=== PATIENT | male | born 1960 | race Caucasian/White ===

== ENCOUNTER 2019-06-13 18:21 | Inpatient (IN) | payer OTHER ==
[~2019-06-13] VITALS: Ht 175.3 cm; Wt 99.8 kg
[~2019-06-13 18:21] MED LIST: RISP2TAB5
--- NOTE | 2019-06-13 18:44 | NUR ---
patient BIBsister, c/o sob/cough/and abdominal distension. On room air, breathing evenly and unlabored. connected to the monitor and pulse ox. IV access initiated, blood drawned. Will continue to monitor accordingly.
[2019-06-13 18:47] LABS: BASOPHILS # (AUTO) 0.1 /CMM (0.0-0.2); EOSINOPHILS % (AUTO) 0.1 % (0.0-6.0); HEMATOCRIT 44 % (39-51); HEMOGLOBIN 14.6 g/dL (13.5-17.5); LYMPHOCYTES # (AUTO) 1.8 /CMM (0.8-4.8); LYMPHOCYTES % (AUTO) 20.2 % (20.0-44.0); MEAN CORPUSCULAR HGB CONC 33 g/dl (31.0-36.0); MEAN CORPUSCULAR VOLUME 92 fL (80-96); MONOCYTES # (AUTO) 0.8 /CMM (0.1-1.30); MONOCYTES % (AUTO) 8.4 % (2.0-12.0); NEUTROPHILS # (AUTO) 6.3 /CMM (1.8-8.9); NEUTROPHILS % (AUTO) 70.3 % (43.0-81.0); PLATELET COUNT (AUTO) 217 /CMM (150-450); RED BLOOD CELL COUNT(AUTO) 4.78 MIL/uL (4.5-6.0)
--- NOTE | 2019-06-13 18:48 | NUR ---
called RT for teatment and aware
--- NOTE | 2019-06-13 18:55 | NUR ---
RT on site.
[2019-06-13 18:57] LABS: CALCIUM, SERUM 8.7 mg/dL (8.5-10.1); CREATININE 1.4 mg/dL (0.6-1.3)
[2019-06-13] MEDS ORDERED: IPRATROPIUM NEB FS 0.5 MG/2.5 ML AMPUL.NEB ONE (18:57)
[2019-06-13] MEDS ORDERED: ALBUTEROL FS 2.5 MG/3 ML VIAL.NEB ONE (18:57)
[2019-06-13] MEDS ORDERED: IPRATROPIUM NEB FS 0.5 MG/2.5 ML AMPUL.NEB NEB ONE (19:00)
[2019-06-13] MEDS ORDERED: ALBUTEROL FS 2.5 MG/3 ML VIAL.NEB NEB ONE (19:00)
[2019-06-13 19:19] LABS: ALBUMIN 3.2 g/dL (3.4-5.0); BILIRUBIN,DIRECT 0.4 mg/dL (0.0-0.2); BILIRUBIN,TOTAL 0.8 mg/dL (0.2-1.0); TOTAL PROTEIN, SERUM 6.2 g/dL (6.4-8.2)
[2019-06-13] MEDS ORDERED: ENALAPRILAT INJ (1.25 MG/ML) 1.25 MG/ML VIAL IV PRN (19:30)
[2019-06-13] MEDS ORDERED: hydrALAZINE HCL IV 20 MG VIAL IV ONE (19:30)
[2019-06-13] MEDS ORDERED: ASPIRIN 325 MG TABLET PO ONE (19:30)
[2019-06-13] MEDS ORDERED: FUROSEMIDE 40 MG/4 ML VIAL IV ONE (19:30)
[2019-06-13] MEDS ORDERED: ENALAPRILAT INJ (1.25 MG/ML) 1.25 MG/ML VIAL IV ONE (19:31)
[2019-06-13] MEDS ORDERED: hydrALAZINE HCL IV 20 MG VIAL ONE (19:31)
[2019-06-13] MEDS ORDERED: FUROSEMIDE 40 MG/4 ML VIAL ONE (19:31)
[2019-06-13] MEDS ORDERED: ASPIRIN 325 MG TABLET ONE (19:32)
--- NOTE | 2019-06-13 19:34 | NUR ---
CALLED [facility]
--- NOTE | 2019-06-13 19:39 | NUR ---
CALLED FOR TELE BED
--- NOTE | 2019-06-13 19:42 | NUR ---
endorsed to next shift RN to continue care.
--- NOTE | 2019-06-13 19:51 | NUR ---
Tele [phone]
[2019-06-13 20:35] VITALS: BP 157/114
--- NOTE | 2019-06-13 20:59 | NUR ---
report given to danelle galan for myron pt transported to 3rd floor
--- NOTE | 2019-06-13 21:00 | NUR ---
COMMERCIAL HORTICULTURE INSTRUCTORMINERAL INDUSTRY TEACHER NOTES PATIENT CAME TO UNIT FROM ER VIA [place], SISTER PRESENT. PATIENT IS ALERT, ORIENTED X 3. BREATHING EVEN AND UNLABORED. NOT IN ANY DISTRESS. NO COMPLAINTS AT THIS TIME. PATIENT IS AMBULATORY, NO SKIN ISSUES NOTED. ABDOMINAL SCAR NOTED FROM AN APPENDECTOMY ABOUT 15 YRS AGO. TELE MONITOR IN PLACE- SINUS RHYTHM 93. IV LINE ON RAC G#18 INTACT AND FLUSHING WELL. ORIENTED TO CALL LIGHT- PLACED WITHIN EASY REACH. BED IN LOW, LOCKED POSITION. BELONGINGS CHECKED BY ASSIGNED HIGH PRESSURE BOILER OPERATOR. WILL CONTINUE TO MONITOR ACCORDINGLY
[2019-06-13] MEDS ORDERED: ACETAMINOPHEN 325 MG TABLET PO PRN (22:30)
[2019-06-13] MEDS ORDERED: MAG HYDROX/AL HYDROX/SIMETH 30 ML UDC PO PRN (22:30)
[2019-06-13] MEDS ORDERED: Z GUARD REMEDY 2 OZ OINT TP PRN (22:30)
[2019-06-13] MEDS ORDERED: ZOLPIDEM TARTRATE 5 MG TABLET PO PRN (22:30)
[2019-06-13] MEDS ORDERED: ONDANSETRON HCL/PF 4 MG/2 ML VIAL IVP PRN (22:30)
[2019-06-13] MEDS ORDERED: MAGNESIUM HYDROXIDE 30 ML UDC PO PRN (22:30)
[2019-06-14] VITALS: BP 144/96
--- NOTE | 2019-06-14 00:20 | NUR ---
RN NOTES TROPONIN I FROM 0.[address] MILTON MADE AWARE. NO NEW ORDERS
[2019-06-14 04:00] VITALS: BP 143/98
[2019-06-14 06:30] LABS: BASOPHILS % (AUTO) 0.5 % (0.0-2.0); HEMATOCRIT 42 % (39-51); LYMPHOCYTES # (AUTO) 1.6 /CMM (0.8-4.8); LYMPHOCYTES % (AUTO) 19.3 % (20.0-44.0); MEAN CORPUSCULAR HGB CONC 33 g/dl (31.0-36.0); MEAN CORPUSCULAR VOLUME 92 fL (80-96); MONOCYTES # (AUTO) 0.6 /CMM (0.1-1.30); MONOCYTES % (AUTO) 7.3 % (2.0-12.0); NEUTROPHILS # (AUTO) 6.1 /CMM (1.8-8.9); NEUTROPHILS % (AUTO) 72.9 % (43.0-81.0); PLATELET COUNT (AUTO) 213 /CMM (150-450); RED BLOOD CELL COUNT(AUTO) 4.62 MIL/uL (4.5-6.0); WHITE BLOOD COUNT (AUTO) 8.4 K/uL (4.3-11.0)
--- NOTE | 2019-06-14 06:35 | NUR ---
FURNITURE SALESPERSON CLOSING NOTES PATIENT SITTING UP IN BED, WATCHING TV. ALERT, ORIENTED X 4. BREATHING EVEN AND UNLABORED. NOT IN ANY DISTRESS. ON ROOM AIR. IV ACCESS ON RAC G#18 INTACT AND PATENT. TELE MONITOR IN PLACE- SINUS RHYTHM 88. SAFETY MEASURES IN PLACE. CALL LIGHT WITHIN REACH. BED IN LOW, LOCKED POSITION. WILL ENDORSE LYNNETTE TO ONCOMING RN
[2019-06-14 07:02] LABS: THYROID STIMULATING HORMONE 2.11 uIU/mL (0.358-3.74)
[2019-06-14 07:17] LABS: CALCIUM, SERUM 8.1 mg/dL (8.5-10.1); CREATININE 1.2 mg/dL (0.6-1.3); PHOSPHORUS 4.9 mg/dL (2.5-4.9); POTASSIUM 3.6 mmol/L (3.5-5.1)
--- NOTE | 2019-06-14 07:40 | NUR ---
COMPUTER ENGINEERING PROFESSOR OPENING NOTES RECEIVED PATIENT IN BED, ALERT AND AWAKE ORIENTED X3. NO SOB. DENIES ANY C/O PAIN NOR DISCOMFORT. AMBULATORY WITH STEADY GAIT. ON TELE MONITORING SR: 89. RAC # 18 SL INTACT AND PATENT WITHOUT S/S OF COMPLICATIONS. BED IN LOWEST POSITION, LOCKED. BED SIDERAILS UPX2. CALL LIGHT WITHIN REACH.
[2019-06-14 08:00] VITALS: BP 152/108
[2019-06-14] MEDS ORDERED: FUROSEMIDE 40 MG/4 ML VIAL IV SCH (09:00)
[2019-06-14] MEDS: AZITHROMYCIN 250 MG TABLET PO SCH (10:17)
[2019-06-14 16:00] VITALS: BP 140/67
[2019-06-14] MEDS: methylPREDNISolone SOD SUCC 40 MG/ML VIAL IV SCH (16:08)
[2019-06-14] MEDS: HYDROCODONE/APAP 5/325MG 1 EACH TABLET PO PRN ×2 (16:10→23:17)
[2019-06-14] MEDS ORDERED: ALBUTEROL FS 2.5 MG/0.5 ML VIAL.NEB NEB PRN (16:30)
[2019-06-14] MEDS ORDERED: CLONIDINE HCL 0.1 MG TABLET PO PRN (16:30)
--- NOTE | 2019-06-14 18:31 | NUR ---
Met with patient and sister Erin at bedside. He lives locally with his parents.He is ambulatory and independent with adl's. Has no DME or homehealth reported. His pcp is . Patient was advised by with smoking cessation. Current dc plan is to dc home, family will provide ride. Addendum: 06/14/19 at 2308 by JACY PHILLIPS RN Amended: Links added.
--- NOTE | 2019-06-14 18:46 | NUR ---
MS RN CLOSING NOTES PATIENT IN BED, ALERT AND AWAKE ORIENTED X3. SISTER AT BEDSIDE. NO SOB. DENIES ANY C/O PAIN NOR DISCOMFORT. AMBULATES AROUND UNIT WITH STEADY GAIT. RAC # 18 SL INTACT AND PATENT WITHOUT S/S OF COMPLICATIONS. BED IN LOWEST POSITION, LOCKED. BED SIDERAILS UPX2. ABLE TO VERBALIZE NEEDS. CALL LIGHT WITHIN REACH. IN NO APPARENT DISTRESS.
--- NOTE | 2019-06-14 19:05 | NUR ---
MS RN NOTES RECEIVED PT IN BED AWAKE AND ABLE TO MAKE NEEDS KNOWN WITH FAMILY AT BEDSIDE. PT A/OX 3. RESPIRATIONS EVEN AND UNLABORED WITH NO S/S OF ACUTE DISTRESS OR SOB NOTED. PT DENIES PAIN AT THIS TIME. PT WITH RAC # 18 SL, PATENT AND INTACT. SAFETY MEASURES IN PLACE WITH BED IN LOWEST LOCKED POSITION WITH SIDE RAILS UP X2. CALL LIGHT WITHIN REACH. WILL CONTINUE TO MONITOR.
[2019-06-14] MEDS: IPRATROPIUM NEB FS 0.5 MG/2.5 ML AMPUL.NEB NEB SCH (19:33)
[2019-06-14 20:00] VITALS: BP_SYST 144; BP_SYST 151; BP_DIAS 108; BP_DIAS 96
[2019-06-15] MEDS: IPRATROPIUM NEB FS 0.5 MG/2.5 ML AMPUL.NEB NEB SCH ×3 (01:30→12:50)
[2019-06-15 06:44] LABS: BASOPHILS % (AUTO) 0.3 % (0.0-2.0); HEMATOCRIT 43 % (39-51); HEMOGLOBIN 14.1 g/dL (13.5-17.5); LYMPHOCYTES # (AUTO) 0.7 /CMM (0.8-4.8); LYMPHOCYTES % (AUTO) 9.2 % (20.0-44.0); MEAN CORPUSCULAR HGB CONC 33 g/dl (31.0-36.0); MEAN CORPUSCULAR VOLUME 92 fL (80-96); MONOCYTES # (AUTO) 0.4 /CMM (0.1-1.30); MONOCYTES % (AUTO) 5.5 % (2.0-12.0); NEUTROPHILS # (AUTO) 6.2 /CMM (1.8-8.9); PLATELET COUNT (AUTO) 216 /CMM (150-450); RED BLOOD CELL COUNT(AUTO) 4.71 MIL/uL (4.5-6.0); WHITE BLOOD COUNT (AUTO) 7.3 K/uL (4.3-11.0)
--- NOTE | 2019-06-15 07:45 | NUR ---
MS RN NOTES PT IN BED AWAKE AND ABLE TO MAKE NEEDS KNOWN. PT A/OX 3. RESPIRATIONS EVEN AND UNLABORED WITH NO S/S OF ACUTE DISTRESS OR SOB NOTED THROUGHOUT SHIFT. PT DENIES PAIN AT THIS TIME. PT WITH RAC # 18 SL, PATENT AND INTACT. SAFETY MEASURES IN PLACE WITH BED IN LOWEST LOCKED POSITION WITH SIDE RAILS UP X2. CALL LIGHT WITHIN REACH. WILL ENDORSE TO ONCOMING NURSE FOR LYNNETTE.
[2019-06-15 08:00] VITALS: BP 158/95
--- NOTE | 2019-06-15 08:00 | NUR ---
received pt. alert and oriented x3,appears slow.vs stable.
[2019-06-15 08:05] LABS: CALCIUM, SERUM 8.4 mg/dL (8.5-10.1); PHOSPHORUS 5.3 mg/dL (2.5-4.9); POTASSIUM 4.5 mmol/L (3.5-5.1)
[2019-06-15] MEDS ORDERED: FUROSEMIDE 40 MG TABLET PO SCH (09:00)
[2019-06-15] MEDS ORDERED: NICOTINE PATCH (14MG) 14 MG PATCH.TD24 TD SCH (09:00)
[2019-06-15] MEDS ORDERED: LISINOPRIL (10MG) 10 MG TABLET PO SCH (09:00)
[2019-06-15] MEDS: methylPREDNISolone SOD SUCC 40 MG/ML VIAL IV SCH (09:22)
[2019-06-15] MEDS: AZITHROMYCIN 250 MG TABLET PO SCH (09:22)
[2019-06-15 09:25] VITALS: BP 158/95
--- NOTE | 2019-06-15 09:30 | NUR ---
IV INADVERTENTLY FELL OUT AND LEFT OUT [POSSIBLE DISCHARGE TODAY.
[2019-06-15] MEDS ORDERED: METH4TAB3 PO (10:59)
[2019-06-15] MEDS ORDERED: AZIT250T PO (10:59)
[2019-06-15] MEDS ORDERED: ALBU18HF2 INH (10:59)
[2019-06-15] MEDS ORDERED: NICO-676 TD (10:59)
[2019-06-15] MEDS ORDERED: LISI10TA5 PO (10:59)
[2019-06-15] MEDS ORDERED: FURO40TA5 PO (10:59)
--- NOTE | 2019-06-15 11:00 | NUR ---
chantell martinez fitter's assistant in and dc order given.sister calling in often to get update on pt.
--- NOTE | 2019-06-15 14:25 | NUR ---
brother edda here and given all instructions,aware of meds to give and when.has rxs along with all paperwork.to go to pt's pharmacy and get rxs filled.pt. wheeled to lobby accompanied by and rohan.
== END 2019-06-15 14:25 | disposition home or self-care (01) | DRG 469 ==
LOC: ER 18:25 → TELE 20:13 → MED 06-14 08:43
PROVIDERS: ADMIT Student in an Organized Health Care Education/Training Program; ATTEND Registered Nurse
DX: N17.0 Acute kidney failure with tubular necrosis (principal); I21.A1 Myocardial infarction type 2; I50.23 Acute on chronic systolic (congestive) heart failure; J90 Pleural effusion, not elsewhere classified; E44.1 Mild protein-calorie malnutrition; I42.9 Cardiomyopathy, unspecified; I11.0 Hypertensive heart disease with heart failure; F29 Unspecified psychosis not due to a substance or known physiological condition; Z79.899 Other long term (current) drug therapy; Z72.0 Tobacco use; J40 Bronchitis, not specified as acute or chronic; E66.9 Obesity, unspecified; Z68.32 Body mass index [BMI] 32.0-32.9, adult
CPT/HCPCS: 36415; 71045-TC; 80048-TC; 80061-TC; 80076-TC; 83690-TC; 83735-TC; 84100-TC; 84443-TC; 84484-TC; 85025-TC; 85730-TC; 87081-TC; 93307-TC; A6253; A6403; G0378; J0360; J1940; J2920; J3490

== ENCOUNTER 2019-08-21 14:26 | Emergency (ER) | payer OTHER ==
[~2019-08-21] VITALS: Ht 170.2 cm; Wt 83.9 kg
[~2019-08-21 14:26] MED LIST changes: +ALBU18HF2 INH; +AZIT250T PO; +FURO40TA5 PO; +LISI10TA5 PO; +METH4TAB3 PO; +NICO-676 TD; -RISP2TAB5
--- NOTE | 2019-08-21 15:00 | NUR ---
AAOX2, C/O INTERMITTENT EPIGASTRIC PAIN X 2 MONTHS. RR IS EVEN AND UNLABORED WITH NAD NOTED. SKIN IS WARM AND DRY. PLACED ON THE MONITOR. AWAITING MD FOR EVAL.
[2019-08-21 15:19] LABS: BASOPHILS # (AUTO) 0.1 /CMM (0.0-0.2); BASOPHILS % (AUTO) 0.8 % (0.0-2.0); HEMATOCRIT 48 % (39-51); HEMOGLOBIN 15.8 g/dL (13.5-17.5); LYMPHOCYTES % (AUTO) 7.7 % (20.0-44.0); MEAN CORPUSCULAR HGB CONC 33 g/dl (31.0-36.0); MEAN CORPUSCULAR VOLUME 88 fL (80-96); MONOCYTES # (AUTO) 1.2 /CMM (0.1-1.30); MONOCYTES % (AUTO) 8.9 % (2.0-12.0); NEUTROPHILS # (AUTO) 11.3 /CMM (1.8-8.9); NEUTROPHILS % (AUTO) 82.6 % (43.0-81.0); PLATELET COUNT (AUTO) 200 /CMM (150-450); RED BLOOD CELL COUNT(AUTO) 5.46 MIL/uL (4.5-6.0); WHITE BLOOD COUNT (AUTO) 13.6 K/uL (4.3-11.0)
[2019-08-21 15:33] LABS: ALBUMIN 3.6 g/dL (3.4-5.0); BILIRUBIN,DIRECT 0.7 mg/dL (0.0-0.2); BILIRUBIN,TOTAL 1.7 mg/dL (0.2-1.0); CALCIUM, SERUM 8.9 mg/dL (8.5-10.1); POTASSIUM 5.1 mmol/L (3.5-5.1); TOTAL PROTEIN, SERUM 7.3 g/dL (6.4-8.2)
[2019-08-21] MEDS ORDERED: POTA20TA83 PO (16:58)
[2019-08-21] MEDS ORDERED: FURO-144 PO (16:58)
[2019-08-21] MEDS ORDERED: SPIR25TA6 PO (16:58)
[2019-08-21] MEDS ORDERED: CARV6.252 PO (16:58)
[2019-08-21] MEDS ORDERED: LOSA50TA39 PO (16:58)
[2019-08-21] MEDS ORDERED: ALBU18HF2 IH (16:58)
[2019-08-21] MEDS ORDERED: PIPERACILLIN /TAZOBACTAM 3.375 G VIAL IV ONE (17:03)
[2019-08-21] MEDS: IV NS 0.9% 1,000 ML IV ONE (17:16)
[2019-08-21] MEDS: PIPERACILLIN /TAZOBACTAM 3.375 G in IV D5W 50 ML IV ONE (17:17)
--- NOTE | 2019-08-21 18:22 | NUR ---
PT GOING TO [facility] ROOM 310-A REPORT # [phone] CALL AFTER 7PM [facility]. ACCEPTING MD IS KEY. KG WILL CALL BACK WITH TRANSPORT INFO.
--- NOTE | 2019-08-21 19:05 | NUR ---
TEO SALINAS [phone]
--- NOTE | 2019-08-21 19:07 | NUR ---
[facility] ETA 2000
--- NOTE | 2019-08-21 19:09 | NUR ---
CALLED [facility] TO [facility]CEL EARLI[facility] MSG
[2019-08-21 19:39] VITALS: BP 134/87
--- NOTE | 2019-08-21 19:44 | NUR ---
REPORT GIVEN TO MELODY OF [facility]
--- NOTE | 2019-08-21 20:29 | NUR ---
KG PLATE INSPECTOR WILL FOLLOW UP FOR TRANSPORT
--- NOTE | 2019-08-21 21:04 | NUR ---
[facility] AT BEDSIDE FOR TRANSPORT TO [facility] .
== END 2019-08-21 21:10 | disposition short-term general hospital (02) ==
LOC: ER 14:29
DX: K81.9 Cholecystitis, unspecified (principal); I50.9 Heart failure, unspecified; F28 Other psychotic disorder not due to a substance or known physiological condition; F17.200 Nicotine dependence, unspecified, uncomplicated; Z79.899 Other long term (current) drug therapy
CPT/HCPCS: 36415; 71045; 74176; 76705; 80048; 80076; 83690; 84484; 85025; 87081; 93005; 96365; 99285; J2543 ×2; J7030; J7060